=== PATIENT | female | born 1955 | race Caucasian/White ===

== ENCOUNTER → 2022-07-23 | Day surgery (SDC) | payer MEDICARE, OTHER | END | disposition home or self-care (01) | LOC: MAMMO 06:52 | PROVIDERS: ATTEND Internal Medicine Critical Care Medicine | PROC: 0H9T3ZX Drainage of Right Breast, Percutaneous Approach, Diagnostic (ICD-10-PCS; principal; 2022-07-23) | DX: N60.31 Fibrosclerosis of right breast (principal); N60.81 Other benign mammary dysplasias of right breast | CPT/HCPCS: 19081; 76098; A4648; 88305 ==